=== PATIENT | female | born 1955 | race Caucasian/White ===

== ENCOUNTER 2018-08-26 20:33 | Inpatient (IN) ==
[2018-08-26] MEDS ORDERED: Sodium Chlor 0.9% Inj 500 ML IV.SIG ONE (20:42)
--- NOTE | 2018-08-26 20:48 | ED ---
HPI General Chief Complaint: Fall Stated Complaint: fall Time Seen by Provider: 08/26/18 20:42 History of Present Illness HPI Narrative: Patient is a 62-year-old female who today was going outside to do her laundry she slipped on the cement her leg left side got trapped underneath her body and she was unable to get up on her own and she was unable to contact anyone to help her paramedics found her around 7:00 this evening over 8 hours after she had been lying on the ground with her leg bent behind her in severe pain. Paramedics had called in route to get orders for morphine to help control her pain as they try to straighten her knee and place it into a temporary splint. On arrival patient is awake alert BP is 166/70 she reports she is still in pain but less so after she received a total of 20 of morphine over 2 mg increments Related Data Home Medications Medication Instructions Recorded Confirmed gabapentin 600 mg PO TID 08/26/18 08/26/18 lisinopril-hydrochlorothiazide 1 tab PO DAILY 08/26/18 08/26/18 Previous Rx's Medication Instructions Recorded enoxaparin [Lovenox] 40 mg SUBCUT DAILY #21 ml 08/30/18 guaifenesin [Mucinex] 600 mg PO BID #10 tab 08/30/18 oxycodone-acetaminophen [Percocet] 1 tab PO Q4H PRN #60 tab 08/30/18 Allergies Allergy/AdvReac Type Severity Reaction Status Date / Time No Known Allergies Allergy Verified 08/26/18 20:42 Review of Systems ROS: all other systems reviewed are negative [facility] Social History Social History Substance History: No History of Abuse Second Hand Smoke Exposure: No Smoking Status: Current every day smoker Tobacco Type: Cigarettes How Often Do You Have a Drink Containing Alcohol: Never Recent Travel in [facility] within the Last 8 Weeks: No Recent Out of Country Travel within the Last 8 Weeks: No Exam Narrative Exam Narrative: GENERAL: SKIN: Warm and dry. HEAD: Atraumatic. Normocephalic. EYES: Pupils equal and round. No scleral icterus. No injection or drainage. ENT: No nasal bleeding or discharge. Mucous membranes pink and moist. NECK: Trachea midline. No JVD. CARDIOVASCULAR: Regular rate and rhythm. RESPIRATORY: No accessory muscle use. Clear to auscultation. Breath sounds equal bilaterally. GASTROINTESTINAL: Abdomen soft, non-tender, nondistended. Hepatic and splenic margins not palpable. MUSCULOSKELETAL: Extremities without clubbing, cyanosis, or edema. No obvious deformities. NEUROLOGICAL: Awake and alert. No obvious cranial nerve deficits. Motor grossly within normal limits. Five out of 5 muscle strength in the arms and legs. Normal speech. PSYCHIATRIC: Appropriate mood and affect; insight and judgment normal. Course Initial Documented Vital Signs Pulse Rate 92 H 08/26/18 20:40 Blood Pressure 166/83 H 08/26/18 20:40 Pulse Oximetry 99 08/26/18 20:40 Last Documented Vital Signs Temperature 98.6 F 08/30/18 16:25 Pulse Rate 77 08/30/18 16:25 Respiratory Rate 16 08/30/18 16:25 Blood Pressure 144/81 H 08/30/18 16:25 Pulse Oximetry 98 08/30/18 16:25 Medical Decision Making Lab Data Result diagrams: 08/30/18 07:35 08/29/18 05:34 Lab Results 08/26/18 08/26/18 08/26/18 Range/Units 20:45 20:45 21:15 WBC 18.2 H (4.0-11.0) th/mm3 RBC 3.33 L (4.00-5.30) mil/mm3 Hgb 9.7 L (11.6-15.3) gm/dL Hct 28.6 L (35.0-46.0) % MCV 85.7 (80.0-100.0) fL MCH 29.0 (27.0-34.0) pg MCHC 33.9 (32.0-36.0) % RDW 14.3 (11.6-17.2) % Plt Count 447 (150-450) th/mm3 MPV 6.0 L (7.0-11.0) fL Prelim Diff (Auto) Neut % (Auto) 91.5 H (16.0-70.0) % Lymph % (Auto) 4.0 L (9.0-44.0) % [place] % (Auto) 4.3 (0.0-8.0) % Eos % (Auto) 0.0 (0.0-4.0) % Baso % (Auto) 0.2 (0.0-2.0) % Neut # (Auto) 16.6 H (1.8-7.7) th/mm3 Lymph # (Auto) 0.7 L (1.0-4.8) th/mm3 [place] # (Auto) 0.8 (0.0-0.9) th/mm3 Eos # (Auto) 0.0 (0.0-0.4) th/mm3 Baso # (Auto) 0.0 (0.0-0.2) th/mm3 WBC Differential . Diff Scan Differential Comment Auto diff final Platelet Estimate (Normal) Platelet Morphology (Normal) PT 10.1 (9.8-11.6) sec INR 1.0 Ratio Sodium 134 L (136-145) meq/L Potassium 3.9 (3.5-5.1) meq/L Chloride 99 (98-107) meq/L Carbon Dioxide 23.8 (21.0-32.0) meq/L Anion Gap 11 (5-15) meq/L BUN 35 H (7-18) mg/dL Creatinine 1.09 H (0.50-1.00) mg/dL Estimated GFR 51 L (>89) mL/min POC Glucose (68-110) mg/dl Random Glucose 110 H (74-106) mg/dL Calcium 8.1 L (8.5-10.1) mg/dL Calcium Adj for Albumin (8.5-10.1) mg/dL Total Bilirubin 0.3 (0.2-1.0) mg/dL AST 42 H (15-37) U/L ALT 28 (10-53) U/L Alkaline Phosphatase 111 (45-117) U/L Total Creatine Kinase 804 H (26-192) U/L CK-MB (CK-2) 23.0 H (0.5-3.6) ng/mL CK-MB (CK-2) % 2.9 (0.0-4.0) % Troponin I Less than 0.02 L (0.02-0.05) ng/mL Total Protein 6.8 (6.4-8.2) g/dL Albumin 3.1 L (3.4-5.0) g/dL Serum Alcohol Less than 3 (0-5) mg/dL Blood Type Blood Type Recheck Antibody Screen MTS Gel Crossmatch 08/26/18 08/27/18 08/27/18 Range/Units 21:15 01:10 22:28 WBC (4.0-11.0) th/mm3 RBC (4.00-5.30) mil/mm3 Hgb (11.6-15.3) gm/dL Hct (35.0-46.0) % MCV (80.0-100.0) fL MCH (27.0-34.0) pg MCHC (32.0-36.0) % RDW (11.6-17.2) % Plt Count (150-450) th/mm3 MPV (7.0-11.0) fL Prelim Diff (Auto) Neut % (Auto) (16.0-70.0) % Lymph % (Auto) (9.0-44.0) % [place] % (Auto) (0.0-8.0) % Eos % (Auto) (0.0-4.0) % Baso % (Auto) (0.0-2.0) % Neut # (Auto) (1.8-7.7) th/mm3 Lymph # (Auto) (1.0-4.8) th/mm3 [place] # (Auto) (0.0-0.9) th/mm3 Eos # (Auto) (0.0-0.4) th/mm3 Baso # (Auto) (0.0-0.2) th/mm3 WBC Differential Diff Scan Differential Comment Platelet Estimate (Normal) Platelet Morphology (Normal) PT (9.8-11.6) sec INR Ratio Sodium (136-145) meq/L Potassium (3.5-5.1) meq/L Chloride (98-107) meq/L Carbon Dioxide (21.0-32.0) meq/L Anion Gap (5-15) meq/L BUN (7-18) mg/dL Creatinine (0.50-1.00) mg/dL Estimated GFR (>89) mL/min POC Glucose 135 H (68-110) mg/dl Random Glucose (74-106) mg/dL Calcium (8.5-10.1) mg/dL Calcium Adj for Albumin (8.5-10.1) mg/dL Total Bilirubin (0.2-1.0) mg/dL AST (15-37) U/L ALT (10-53) U/L Alkaline Phosphatase (45-117) U/L Total Creatine Kinase 827 H (26-192) U/L CK-MB (CK-2) 24.1 H (0.5-3.6) ng/mL CK-MB (CK-2) % 2.9 (0.0-4.0) % Troponin I (0.02-0.05) ng/mL Total Protein (6.4-8.2) g/dL Albumin (3.4-5.0) g/dL Serum Alcohol (0-5) mg/dL Blood Type O Positive Blood Type Recheck Required Antibody Screen Negative MTS Gel Crossmatch 08/27/18 08/28/18 08/28/18 Range/Units 22:50 00:15 06:08 WBC 14.4 H (4.0-11.0) th/mm3 RBC 2.33 L (4.00-5.30) mil/mm3 Hgb 6.9 L* D (11.6-15.3) gm/dL Hct 20.3 L* (35.0-46.0) % MCV 87.3 (80.0-100.0) fL MCH 29.4 (27.0-34.0) pg MCHC 33.7 (32.0-36.0) % RDW 14.2 (11.6-17.2) % Plt Count 303 D (150-450) th/mm3 MPV 6.2 L (7.0-11.0) fL Prelim Diff (Auto) Slide review pending Neut % (Auto) 84.1 H (16.0-70.0) % Lymph % (Auto) 8.0 L (9.0-44.0) % [place] % (Auto) 7.3 (0.0-8.0) % Eos % (Auto) 0.1 (0.0-4.0) % Baso % (Auto) 0.5 (0.0-2.0) % Neut # (Auto) 12.1 H (1.8-7.7) th/mm3 Lymph # (Auto) 1.2 (1.0-4.8) th/mm3 [place] # (Auto) 1.0 H (0.0-0.9) th/mm3 Eos # (Auto) 0.0 (0.0-0.4) th/mm3 Baso # (Auto) 0.1 (0.0-0.2) th/mm3 WBC Differential . Diff Scan Auto diff confirmed Differential Comment . Platelet Estimate Normal (Normal) Platelet Morphology Normal (Normal) PT (9.8-11.6) sec INR Ratio Sodium 138 (136-145) meq/L Potassium 4.1 (3.5-5.1) meq/L Chloride 106 (98-107) meq/L Carbon Dioxide 24.7 (21.0-32.0) meq/L Anion Gap 7 (5-15) meq/L BUN 15 (7-18) mg/dL Creatinine 0.66 (0.50-1.00) mg/dL Estimated GFR Greater than 89 (>89) mL/min POC Glucose (68-110) mg/dl Random Glucose 100 (74-106) mg/dL Calcium 7.2 L* D (8.5-10.1) mg/dL Calcium Adj for Albumin 8.8 (8.5-10.1) mg/dL Total Bilirubin (0.2-1.0) mg/dL AST (15-37) U/L ALT (10-53) U/L Alkaline Phosphatase (45-117) U/L Total Creatine Kinase (26-192) U/L CK-MB (CK-2) (0.5-3.6) ng/mL CK-MB (CK-2) % (0.0-4.0) % Troponin I (0.02-0.05) ng/mL Total Protein (6.4-8.2) g/dL Albumin 2.0 L D (3.4-5.0) g/dL Serum Alcohol (0-5) mg/dL Blood Type Blood Type Recheck Antibody Screen MTS Gel Crossmatch See Detail 08/28/18 08/29/18 08/29/18 Range/Units 06:08 05:34 05:34 WBC 10.8 (4.0-11.0) th/mm3 RBC 2.47 L (4.00-5.30) mil/mm3 Hgb 8.1 L 7.4 L (11.6-15.3) gm/dL Hct 23.4 L 22.0 L (35.0-46.0) % MCV 89.2 (80.0-100.0) fL MCH 30.0 (27.0-34.0) pg MCHC 33.6 (32.0-36.0) % RDW 14.2 (11.6-17.2) % Plt Count 294 (150-450) th/mm3 MPV 6.3 L (7.0-11.0) fL Prelim Diff (Auto) Neut % (Auto) 78.6 H (16.0-70.0) % Lymph % (Auto) 9.7 (9.0-44.0) % [place] % (Auto) 10.1 H (0.0-8.0) % Eos % (Auto) 0.9 (0.0-4.0) % Baso % (Auto) 0.7 (0.0-2.0) % Neut # (Auto) 8.5 H (1.8-7.7) th/mm3 Lymph # (Auto) 1.1 (1.0-4.8) th/mm3 [place] # (Auto) 1.1 H (0.0-0.9) th/mm3 Eos # (Auto) 0.1 (0.0-0.4) th/mm3 Baso # (Auto) 0.1 (0.0-0.2) th/mm3 WBC Differential . Diff Scan Differential Comment Auto diff final Platelet Estimate (Normal) Platelet Morphology (Normal) PT (9.8-11.6) sec INR Ratio Sodium 135 L (136-145) meq/L Potassium 3.8 (3.5-5.1) meq/L Chloride 103 (98-107) meq/L Carbon Dioxide 25.3 (21.0-32.0) meq/L Anion Gap 7 (5-15) meq/L BUN 12 (7-18) mg/dL Creatinine 0.55 (0.50-1.00) mg/dL Estimated GFR Greater than 89 (>89) mL/min POC Glucose (68-110) mg/dl Random Glucose 105 (74-106) mg/dL Calcium 7.5 L (8.5-10.1) mg/dL Calcium Adj for Albumin (8.5-10.1) mg/dL Total Bilirubin (0.2-1.0) mg/dL AST (15-37) U/L ALT (10-53) U/L Alkaline Phosphatase (45-117) U/L Total Creatine Kinase (26-192) U/L CK-MB (CK-2) (0.5-3.6) ng/mL CK-MB (CK-2) % (0.0-4.0) % Troponin I (0.02-0.05) ng/mL Total Protein (6.4-8.2) g/dL Albumin (3.4-5.0) g/dL Serum Alcohol (0-5) mg/dL Blood Type Blood Type Recheck Antibody Screen MTS Gel Crossmatch 08/29/18 08/30/18 Range/Units 09:06 07:35 WBC 8.7 (4.0-11.0) th/mm3 RBC 3.45 L (4.00-5.30) mil/mm3 Hgb 10.3 L D (11.6-15.3) gm/dL Hct 30.7 L (35.0-46.0) % MCV 89.0 (80.0-100.0) fL MCH 29.9 (27.0-34.0) pg MCHC 33.6 (32.0-36.0) % RDW 14.6 (11.6-17.2) % Plt Count 332 (150-450) th/mm3 MPV 6.4 L (7.0-11.0) fL Prelim Diff (Auto) Neut % (Auto) 79.1 H (16.0-70.0) % Lymph % (Auto) 11.0 (9.0-44.0) % [place] % (Auto) 7.8 (0.0-8.0) % Eos % (Auto) 1.4 (0.0-4.0) % Baso % (Auto) 0.7 (0.0-2.0) % Neut # (Auto) 6.8 (1.8-7.7) th/mm3 Lymph # (Auto) 1.0 (1.0-4.8) th/mm3 [place] # (Auto) 0.7 (0.0-0.9) th/mm3 Eos # (Auto) 0.1 (0.0-0.4) th/mm3 Baso # (Auto) 0.1 (0.0-0.2) th/mm3 WBC Differential . Diff Scan Differential Comment Auto diff final Platelet Estimate (Normal) Platelet Morphology (Normal) PT (9.8-11.6) sec INR Ratio Sodium (136-145) meq/L Potassium (3.5-5.1) meq/L Chloride (98-107) meq/L Carbon Dioxide (21.0-32.0) meq/L Anion Gap (5-15) meq/L BUN (7-18) mg/dL Creatinine (0.50-1.00) mg/dL Estimated GFR (>89) mL/min POC Glucose (68-110) mg/dl Random Glucose (74-106) mg/dL Calcium (8.5-10.1) mg/dL Calcium Adj for Albumin (8.5-10.1) mg/dL Total Bilirubin (0.2-1.0) mg/dL AST (15-37) U/L ALT (10-53) U/L Alkaline Phosphatase (45-117) U/L Total Creatine Kinase (26-192) U/L CK-MB (CK-2) (0.5-3.6) ng/mL CK-MB (CK-2) % (0.0-4.0) % Troponin I (0.02-0.05) ng/mL Total Protein (6.4-8.2) g/dL Albumin (3.4-5.0) g/dL Serum Alcohol (0-5) mg/dL Blood Type Blood Type Recheck Antibody Screen MTS Gel Crossmatch See Detail Imaging Data Radiologist's impression: Femur X-Ray 08/26/18 20:43 CONCLUSION: 1. Proximal left femur fracture, as above. Pelvis X-Ray 08/26/18 20:43 CONCLUSION: 1. No acute fracture. Femur X-Ray 08/27/18 00:00 CONCLUSION: Satisfactory appearance of the left femur status post ORIF of a shaft fracture as described. Chest X-Ray 08/28/18 00:00 CONCLUSION: No evidence of acute cardiopulmonary process. Discharge Plan Discharge Disposition Patient Disposition: ED Admit(ED Internal Use Only) Discharge Condition Condition: Stable Discharge Order Discharge Orders: Discharge Order (Routine); Ordered 08/30/18 Ordered By: Aura Murillo ED Use Only Admit Order (Routine); Ordered 08/26/18 Ordered By: David Valerio Discharge Details Anticipated Discharge Date: 08/30/18 Discharge Comment: Followup with Dr. Eubanks in 2 weeks Followup with PCP, Dr. Richard Velazco, 1 week after discharge from rehab Physicians Team ED Provider: David Valerio Primary Care Provider: Richard Velazco Attending Provider: Nathan Chowdary Other Providers: Fabby Eubanks ; Kaylee Ocampo,Hagerman Status ED Status: Left Department Discharge Information Discharge Date/Time: 08/27/18 02:14
--- NOTE | 2018-08-26 21:26 | XR ---
EXAM DATE: 08/26/2018 9:20 PM EST AGE/SEX: 62 years / Female INDICATIONS: Trauma, patient fell down stairs. CLINICAL DATA: This is the patient's initial encounter. Patient reports that signs and symptoms have been present for 1 day and indicates a pain score of 10/10. MEDICAL/SURGICAL HISTORY: None. None. COMPARISON: [facility] [place], PELVIS AP 1V, 08/26/2018. . FINDINGS: Oblique fracture of the proximal left femoral diaphysis with significant overriding fragments and ful l shaft length medial and anterior displacement of the distal fragment. Soft tissue prominence about the thigh. No radiopaque foreign bodies. CONCLUSION: 1. Proximal left femur fracture, as above. Electronically signed by: Gerson Garcia MD Board Certified Radiologist 08/26/2018 9:25 PM KALEB T
--- NOTE | 2018-08-26 21:27 | XR ---
EXAM DATE: 08/26/2018 9:19 PM EST AGE/SEX: 62 years / Female INDICATIONS: Trauma, patient fell down stairs. CLINICAL DATA: This is the patient's initial encounter. Patient reports that signs and symptoms have been present for 1 day and indicates a pain score of 10/10. MEDICAL/SURGICAL HISTORY: None. None. COMPARISON: No prior exams available for comparison. FINDINGS: Examination of the pelvis demonstrates no evidence of fracture or dislocation. Bony mineralization i s normal. There is no widening of the sacroiliac joints. No foreign body is identified. CONCLUSION: 1. No acute fracture. Electronically signed by: Gerson Garcia MD Board Certified Radiologist 08/26/2018 9:25 PM KALEB T
[2018-08-26 21:50] LABS: Baso % (Auto) 0.2 % (0.0-2.0); Hematocrit 28.6 % (35.0-46.0); Hemoglobin 9.7 gm/dL (11.6-15.3); Lymph # (Auto) 0.7 th/mm3 (1.0-4.8); Mean Corpuscular HGB Conc 33.9 % (32.0-36.0); Mean Corpuscular Volume 85.7 fL (80.0-100.0); Mono # (Auto) 0.8 th/mm3 (0.0-0.9); Mono % (Auto) 4.3 % (0.0-8.0); Neut # (Auto) 16.6 th/mm3 (1.8-7.7); Neut % (Auto) 91.5 % (16.0-70.0); Platelet Count 447 th/mm3 (150-450); Red Blood Count 3.33 mil/mm3 (4.00-5.30); Red Cell Distribution Width 14.3 % (11.6-17.2); White Blood Count 18.2 th/mm3 (4.0-11.0)
[2018-08-26 21:57] LABS: Prothrombin Time 10.1 sec (9.8-11.6)
[2018-08-26] MEDS ORDERED: HYDROmorphone PF Inj 2 MG/ML Vial IV.PUSH ONE (21:58)
[2018-08-26 22:28] LABS: Alanine Aminotransferase 28 U/L (10-53); Albumin 3.1 g/dL (3.4-5.0); Anion Gap 11 meq/L (5-15); Aspartate Aminotransferase 42 U/L (15-37); Blood Urea Nitrogen 35 mg/dL (7-18); Calcium 8.1 mg/dL (8.5-10.1); Carbon Dioxide 23.8 meq/L (21.0-32.0); Chloride 99 meq/L (98-107); Glomerular Filtration Rate 51 mL/min (>89); Glucose,Random 110 mg/dL (74-106); Potassium 3.9 meq/L (3.5-5.1); Sodium 134 meq/L (136-145)
[2018-08-26 22:32] LABS: Alkaline Phosphatase 111 U/L (45-117); Creatine Kinase 804 U/L (26-192); Total Protein 6.8 g/dL (6.4-8.2)
[2018-08-26 22:44] LABS: CKMB Percent 2.9 % (0.0-4.0)
[2018-08-26] MEDS ORDERED: Bisacodyl 10 MG Supp RECTAL PRN (22:52)
--- NOTE | 2018-08-26 23:00 | P.HP ---
History of Present Illness Service: [facility] Primary Care Physician: Richard Velazco MD Chief Complaint: Fall at home History of Present Illness: 62-year-old female who today was going outside to do her laundry she slipped on the cement her left leg got try underneath her body and one is a and was unable to get up on her own. She was unable to contact anyone to help her, paramedics found her approximately 7 PM over 8 hours from the incident patient with severe pain requiring several doses of morphine and eventual Dilaudid x-rays confirm a left large femur fracture orthopedics is aware will be admitted now for surgery in the morning patient has a past medical history of neuropathy chronic knee pain she is on gabapentin and [place] also hypertension on lisinopril 20 mg with HCTZ 12 past medical history includes chronic headaches hypertension . - Diagnosis (1) Femur fracture, left (2) Hypertension (3) Leukocytosis Inpatient Certification: I certify that the inpatient services were ordered in accordance with Medicare regulations governing the order. This includes certification that hospital inpatient services are reasonable and necessary and in the case of services not specified as inpatient-only under 42 CFR 419.22(n), that they are appropriately provided as inpatient services in accordance to with the 2-midnight benchmark under 43 CFR 412.3(e) Estimated Total Length of Stay (Days): 3 Plans for Post Hospital Care: SNF Review of Systems All other systems reviewed negative except as stated in HPI PMFSH - History History Provided By: Patient, Security Incident Handler / EMT - Medical History Medical History: Medical History (Last Reviewed 08/26/18 @ 22:57 by Gui Montiel MD) Arthritis Chronic headaches HTN (hypertension) - Tobacco History Tobacco Use In Past 30 Days: Yes Smoking Status: Current every day smoker Tobacco Type: Cigarettes - Alcohol History How Often Do You Have a Drink Containing Alcohol: Never - Substance Use History Substance History: No History of Abuse - Travel History Recent Travel in the [place] Within the Last 8 Weeks: No Recent Travel Out of the Country Within the Last 8 Weeks: No - Immunization History Tetanus Immunization: >5 Years Medications and Allergies Active Medications: Active Medications Acetaminophen (Tylenol) 650 mg PO Q4H PRN PRN Reason: Temp > 100.4 Bisacodyl (Dulcolax Supp) 10 mg RECTAL DAILY PRN PRN Reason: SEVERE CONSITIPATION Gabapentin (Neurontin) 600 mg PO TID ARTURO Hydrochlorothiazide (Microzide) 12.5 mg PO DAILY ARTURO Hydromorphone HCl (Dilaudid Pf Inj) 1 mg IV.PUSH Q4H PRN PRN Reason: PAIN 6-10 Sodium Chloride (1/2 Normal Saline Inj) 1,000 mls @ 75 mls/hr IV.CONT .[id number] ARTURO Lisinopril (Prinivil) 20 mg PO DAILY ARTURO Ondansetron HCl (Zofran Inj) 4 mg IV.PUSH Q6H PRN PRN Reason: NAUSEA OR VOMITING Sodium Chloride (Ns Flush) 2 ml IV.FLUSH BID ARTURO Sodium Chloride (Ns Flush) 2 ml IV.FLUSH PRN PRN PRN Reason: FLUSH AFTER USING IV ACCESS Allergies Allergy/AdvReac Type Severity Reaction Status Date / Time No Known Allergies Allergy Verified 08/26/18 20:42 Exam Vital signs: Vital Signs 08/26/18 20:40 08/26/18 20:47 Pulse Rate 92 H 87 Blood Pressure 166/83 H 147/70 H Pulse Oximetry 99 99 Intake & Output 08/26/18 08/26/18 08/27/18 06:59 18:59 06:59 Intake Total 500 / 500 Balance 500 / 500 Weight 62.596 kg Intake: IV 500 / 500 NS Inj 500 ML @ Wide Open IV. 500 / 500 SIG BOLUS ONE Rx#:[id number] Narrative: GENERAL: SKIN: Warm and dry. HEAD: Normocephalic. EYES: No scleral icterus. No injection or drainage. NECK: Supple, trachea midline. No JVD or lymphadenopathy. CARDIOVASCULAR: Regular rate and rhythm without murmurs, gallops, or rubs. RESPIRATORY: Breath sounds equal bilaterally. No accessory muscle use. GASTROINTESTINAL: Abdomen soft, non-tender, nondistended. MUSCULOSKELETAL: left leg in traction as per orthopedics BACK: Nontender without obvious deformity. No CVA tenderness. Results - Labs CBC & Chem 7: 08/26/18 20:45 08/26/18 20:45 Labs: Laboratory Results - last 24 hr 08/26/18 08/26/18 08/26/18 20:45 20:45 21:15 WBC 18.2 H RBC 3.33 L Hgb 9.7 L Hct 28.6 L MCV 85.7 MCH 29.0 MCHC 33.9 RDW 14.3 Plt Count 447 MPV 6.0 L Neut % (Auto) 91.5 H Lymph % (Auto) 4.0 L [place] % (Auto) 4.3 Eos % (Auto) 0.0 Baso % (Auto) 0.2 Neut # (Auto) 16.6 H Lymph # (Auto) 0.7 L [place] # (Auto) 0.8 Eos # (Auto) 0.0 Baso # (Auto) 0.0 WBC Differential . Differential Comment Auto diff final PT 10.1 INR 1.0 Sodium 134 L Potassium 3.9 Chloride 99 Carbon Dioxide 23.8 Anion Gap 11 BUN 35 H Creatinine 1.09 H Estimated GFR 51 L Random Glucose 110 H Calcium 8.1 L Total Bilirubin 0.3 AST 42 H ALT 28 Alkaline Phosphatase 111 Total Creatine Kinase 804 H CK-MB (CK-2) 23.0 H CK-MB (CK-2) % 2.9 Troponin I Less than 0.02 L Total Protein 6.8 Albumin 3.1 L Serum Alcohol Less than 3 Blood Type Blood Type Recheck Antibody Screen 08/26/18 21:15 WBC RBC Hgb Hct MCV MCH MCHC RDW Plt Count MPV Neut % (Auto) Lymph % (Auto) [place] % (Auto) Eos % (Auto) Baso % (Auto) Neut # (Auto) Lymph # (Auto) [place] # (Auto) Eos # (Auto) Baso # (Auto) WBC Differential Differential Comment PT INR Sodium Potassium Chloride Carbon Dioxide Anion Gap BUN Creatinine Estimated GFR Random Glucose Calcium Total Bilirubin AST ALT Alkaline Phosphatase Total Creatine Kinase CK-MB (CK-2) CK-MB (CK-2) % Troponin I Total Protein Albumin Serum Alcohol Blood Type O Positive Blood Type Recheck Required Antibody Screen Negative - Imaging Impressions Femur X-Ray 08/26/18 20:43 CONCLUSION: 1. Proximal left femur fracture, as above. Pelvis X-Ray 08/26/18 20:43 CONCLUSION: 1. No acute fracture. Caprini VTE Risk Assessment Caprini VTE Risk Assessment: Moderate/High Risk (score >= 2) Caprini Risk Assessment Model: Point Value = 1 Point Value = 2 Point Value = 3 Point Value = 5 Age 41-60 Minor surgery BMI > 25 kg/m2 Swollen legs Varicose veins or History of unexplained or recurrent spontaneous Oral contraceptives or hormone replacement Sepsis (< 1 month) Serious lung disease, including pneumonia (< 1 month) Abnormal pulmonary function Acute myocardial infarction Congestive heart failure (< 1 month) History of inflammatory bowel disease Medical patient at bed rest Age 61-74 Arthroscopic surgery Major open surgery (> 45 min) Laparoscopic surgery (> 45 min) Malignancy Confined to bed (> 72 hours) Immobilizing plaster cast Central venous access Age >= 75 History of VTE Family history of VTE Factor V Leiden Prothrombin [id number] Lupus anticoagulant Anticardiolipin antibodies Elevated serum homocysteine Heparin-induced thrombocytopenia Other congenital or acquired thrombophilia Stroke (< 1 month) Elective arthroplasty Hip, pelvis, or leg fracture Acute spinal cord injury (< 1 month) Prophylaxis Regimen: Total Risk Factor Score Risk Level Prophylaxis Regimen 0-1 Low Early ambulation 2 Moderate Order ONE of the following: *Sequential Compression Device (SCD) *Heparin 5000 units SQ BID 3-4 Higher Order ONE of the following medications: *Heparin 5000 units SQ TID *Enoxaparin/Lovenox 40 mg SQ daily (WT < 150 kg, CrCl > 30 mL/min) *Enoxaparin/Lovenox 30 mg SQ daily (WT < 150 kg, CrCl > 10-29 mL/min) *Enoxaparin/Lovenox 30 mg SQ BID (WT < 150 kg, CrCl > 30 mL/min) AND/OR *Sequential Compression Device (SCD) 5 or more Highest Order ONE of the following medications: *Heparin 5000 units SQ TID (Preferred with Epidurals) *Enoxaparin/Lovenox 40 mg SQ daily (WT < 150 kg, CrCl > 30 mL/min) *Enoxaparin/Lovenox 30 mg SQ daily (WT < 150 kg, CrCl > 10-29 mL/min) *Enoxaparin/Lovenox 30 mg SQ BID (WT < 150 kg, CrCl > 30 mL/min) AND *Sequential Compression Device (SCD) Assessment and Plan - Assessment (1) Femur fracture, left Code(s): S72.92XA - Unspecified fracture of left femur, initial encounter for closed fracture Status: Acute Plan: Pain control orthopedic consult trouble with surgery (2) Hypertension Code(s): I10 - Essential (primary) hypertension Status: Acute Plan: Continue home medication (3) Leukocytosis Code(s): D72.829 - Elevated white blood cell count, unspecified Status: Acute Plan: We will recheck WBC count in a.m. does have a slightly low hemoglobin as well will be rechecked may be a reserve as a result of her being on the floor for over 8 hours - Plan Further plan as case develops Code Status: Full Discussed Condition With: Patient and family
[2018-08-27] MEDS ORDERED: Sod Chloride 0.9% Inj 1,000 ML IV.SIG ONE ×3 (01:10→23:30)
[2018-08-27] MEDS: Sodium Chloride 0.45 % Inj 1,000 ML IV.CONT SCH ×2 (01:15→17:50)
[2018-08-27] MEDS: HYDROmorphone PF Inj 1 MG/ML Ampul IV.PUSH PRN ×3 (02:29→09:54)
[2018-08-27 02:56] LABS: CKMB Percent 2.9 % (0.0-4.0); Creatine Kinase MB 24.1 ng/mL (0.5-3.6)
[2018-08-27] MEDS ORDERED: Chlorhexidine Gluconate 2% 1 Pack (2 Cloths) TOPICAL ONE (04:05)
[2018-08-27] MEDS ORDERED: Sodium Chlor 0.9% Inj 500 ML IV.SIG SCH (05:00)
[2018-08-27] MEDS: Gabapentin 300 MG Capsule PO SCH ×3 (09:50→17:42)
[2018-08-27] MEDS: Lisinopril 20 MG Tablet PO SCH (09:51)
--- NOTE | 2018-08-27 10:00 | P.CONOP ---
[facility] Orthopedics Consult Note - [facility] Consult date: 08/27/18 Requesting physician: David Valerio Consult reason: fracture Chief complaint: femur fracture Narrative: 62 year old female missed a step yesterday and fell at home. She was unable to bear weight on the left leg and was down for approximately 8 hours before she was found and brought to the emergency room. Imaging revealed a femoral shaft fracture. She is complaining of pain to the left thigh this morning. She denies pain elsewhere. She denies numbness or tingling. Review of Systems All other systems reviewed negative except as stated in [facility] - History History Provided By: Patient - Medical History Medical History: Medical History (Last Reviewed 08/27/18 @ 09:56 by Fabby Eubanks MD) Arthritis Chronic headaches HTN (hypertension) - Social History I have reviewed the patient's Social History: Yes - Tobacco History Second Hand Smoke Exposure: No Tobacco Use In Past 30 Days: Yes Smoking Status: Current every day smoker Tobacco Type: Cigarettes - Alcohol History How Often Do You Have a Drink Containing Alcohol: Never - Substance Use History Substance History: No History of Abuse - Travel History Recent Travel in the [facility] Within the Last 8 Weeks: No Recent Travel Out of the Country Within the Last 8 Weeks: No - Immunization History Tetanus Immunization: Unsure Hx Influenza Vaccine This Season: No Medications and Allergies Active Medications: Active Medications Acetaminophen (Tylenol) 650 mg PO Q4H PRN PRN Reason: Temp > 100.4 Bisacodyl (Dulcolax Supp) 10 mg RECTAL DAILY PRN PRN Reason: SEVERE CONSITIPATION Gabapentin (Neurontin) 600 mg PO TID [facility] Hydrochlorothiazide (Microzide) 12.5 mg PO DAILY [facility] Hydromorphone HCl (Dilaudid Pf Inj) 1 mg IV.PUSH Q4H PRN PRN Reason: PAIN 6-10 Last Admin: 08/27/18 06:28 Dose: 1 mg Sodium Chloride (1/2 Normal Saline Inj) 1,000 mls @ 75 mls/hr IV.CONT .[id number] [facility] Last Admin: 08/27/18 01:15 Dose: 75 mls/hr Lactated Ringer's (Lr 1000 Ml Inj) 1,000 mls @ 30 mls/hr IV.SIG .Q24H [facility] Stop: 08/28/18 04:14 Sodium Chloride (Ns Inj) 500 mls @ 30 mls/hr IV.SIG .Q10H [facility] Lisinopril (Prinivil) 20 mg PO DAILY [facility] Ondansetron HCl (Zofran Inj) 4 mg IV.PUSH Q6H PRN PRN Reason: NAUSEA OR VOMITING Last Admin: 08/27/18 02:30 Dose: 4 mg Sodium Chloride (Ns Flush) 2 ml IV.FLUSH BID [facility] Sodium Chloride (Ns Flush) 2 ml IV.FLUSH PRN PRN PRN Reason: FLUSH AFTER USING IV ACCESS Allergies Allergy/AdvReac Type Severity Reaction Status Date / Time No Known Allergies Allergy Verified 08/26/18 20:42 Home Medications Medication Instructions Recorded Confirmed Type gabapentin 600 mg PO TID 08/26/18 08/26/18 History hydrocodone-acetaminophen [[place]] 1 tab PO DAILY 08/26/18 08/26/18 History lisinopril-hydrochlorothiazide 1 tab PO DAILY 08/26/18 08/26/18 History Exam Vital signs: Vital Signs 08/26/18 20:40 08/26/18 20:47 08/26/18 23:26 Temperature Pulse Rate 92 H 87 Respiratory Rate 14 Blood Pressure 166/83 H 147/70 H Pulse Oximetry 99 99 08/27/18 00:52 08/27/18 02:14 08/27/18 03:29 Temperature 98.1 F Pulse Rate 90 90 Respiratory Rate 16 19 Blood Pressure 152/72 H 167/77 H Pulse Oximetry 94 L 95 08/27/18 07:30 Temperature 98.6 F Pulse Rate 80 Respiratory Rate 17 Blood Pressure 141/65 H Pulse Oximetry 96 Intake & Output 08/26/18 08/27/18 08/27/18 18:59 06:59 18:59 Intake Total 500 / 500 Balance 500 / 500 Weight 68.1 kg Intake: IV 500 / 500 NS Inj 500 ML @ Wide Open IV. 500 / 500 SIG BOLUS ONE Rx#:[id number] Other: # Voids 2 Weight On Admission 67.5 kg - Constitutional no acute distress - Routine HEENT Exam Head: Present: normocephalic Eye: Present: EOMI - Routine Respiratory Exam Absent: accessory muscle use - Routine Cardiovascular Exam Present: RRR - Routine Extremities Exam Comments: LLE in altamirano's traction, 2+DP, wiggles toes, sensation intact to light touch. TTP about thigh, some ecchymosis present RLE without tenderness, no pain with log roll, NVI BUE with full active ROM, no deformities, NVI - Routine Neurological Exam Present: alert, oriented X3 Results - Labs Result Diagrams: 08/26/18 20:45 08/26/18 20:45 Labs: Laboratory Results - last 24 hr 08/26/18 08/26/18 08/26/18 20:45 20:45 21:15 WBC 18.2 H RBC 3.33 L Hgb 9.7 L Hct 28.6 L MCV 85.7 MCH 29.0 MCHC 33.9 RDW 14.3 Plt Count 447 MPV 6.0 L Neut % (Auto) 91.5 H Lymph % (Auto) 4.0 L [place] % (Auto) 4.3 Eos % (Auto) 0.0 Baso % (Auto) 0.2 Neut # (Auto) 16.6 H Lymph # (Auto) 0.7 L [place] # (Auto) 0.8 Eos # (Auto) 0.0 Baso # (Auto) 0.0 WBC Differential . Differential Comment Auto diff final PT 10.1 INR 1.0 Sodium 134 L Potassium 3.9 Chloride 99 Carbon Dioxide 23.8 Anion Gap 11 BUN 35 H Creatinine 1.09 H Estimated GFR 51 L Random Glucose 110 H Calcium 8.1 L Total Bilirubin 0.3 AST 42 H ALT 28 Alkaline Phosphatase 111 Total Creatine Kinase 804 H CK-MB (CK-2) 23.0 H CK-MB (CK-2) % 2.9 Troponin I Less than 0.02 L Total Protein 6.8 Albumin 3.1 L Serum Alcohol Less than 3 Blood Type Blood Type Recheck Antibody Screen 08/26/18 08/27/18 21:15 01:10 WBC RBC Hgb Hct MCV MCH MCHC RDW Plt Count MPV Neut % (Auto) Lymph % (Auto) [place] % (Auto) Eos % (Auto) Baso % (Auto) Neut # (Auto) Lymph # (Auto) [place] # (Auto) Eos # (Auto) Baso # (Auto) WBC Differential Differential Comment PT INR Sodium Potassium Chloride Carbon Dioxide Anion Gap BUN Creatinine Estimated GFR Random Glucose Calcium Total Bilirubin AST ALT Alkaline Phosphatase Total Creatine Kinase 827 H CK-MB (CK-2) 24.1 H CK-MB (CK-2) % 2.9 Troponin I Total Protein Albumin Serum Alcohol Blood Type O Positive Blood Type Recheck Required Antibody Screen Negative - Diagnostic results Imaging: Impressions Femur X-Ray 08/26/18 20:43 CONCLUSION: 1. Proximal left femur fracture, as above. Pelvis X-Ray 08/26/18 20:43 CONCLUSION: 1. No acute fracture. Assessment and Plan - Assessment and Plan 62 year old female who fell and sustained a left femoral shaft fracture. Plan: Recommend surgical fixation with intramedullary nail. Risks, benefits and alternatives discussed. Risks include but are not limited to infection, bleeding , damage to neurovascular structures, malunion, nonunion, persistent pain, potential need for further surgical procedures. Patient verbalized understanding and agrees to proceed. Keep NPO for surgery today.
[2018-08-27] MEDS ORDERED: ceFAZolin 2 GM Premix Inj 2 GM/50 ML PIGGYBACK IV.SIG SCH (10:02)
--- NOTE | 2018-08-27 11:30 | ECG ---
Date Performed: 08/27/2018 Time Performed: 05:32:52 PTAGE: 62 years EKG: Sinus rhythm with PAC(s) Borderline ECG NO PREVIOUS TRACING DOCTOR: Danny Garcia Interpretating Date/Time 08/27/2018 11:29:06
--- NOTE | 2018-08-27 15:08 | P.BOP ---
Date of procedure: 08/27/18 Procedure: open reduction internal fixation left femur fracture Implants: Synthes [id number] [id number] 130 degree nail Anesthesia: GETA Surgeon: Fabby Eubanks MD Forensic Computer Examiner: Karma Holman Estimated blood loss (mL): 200 Pathology: none sent Condition: stable Disposition: PACU
[2018-08-27] MEDS ORDERED: fentaNYL Citrate Inj 100 MCG/2 ML Ampul ONE (15:25)
[2018-08-27] MEDS ORDERED: Morphine Inj 4 MG/ML Vial ONE (15:26)
[2018-08-27] MEDS ORDERED: *morphine SULFATE 10 MG/ML PERIprocedure ONLY ONE (16:13)
--- NOTE | 2018-08-27 16:27 | XR ---
EXAM DATE: 08/27/2018 3:22 PM EST AGE/SEX: 62 years / Female INDICATIONS: Left femoral binh. CLINICAL DATA: This is the patient's initial encounter. Patient reports that signs and symptoms have been present for 1 day and indicates a pain score of Nonresponsive. MEDICAL/SURGICAL HISTORY: Non-responsive. Non-responsive. [place] [facility] [place]. . FINDINGS: A trochanteric nail with a long intramedullary binh extending from the hip to the knee has been placed to stabilize a femoral shaft fracture. There is satisfactory apposition of the fracture following re duction and fixation. CONCLUSION: Satisfactory appearance of the left femur status post ORIF of a shaft fracture as described. Electronically signed by: Kraig Reynoso MD Board Certified Radiologist 08/27/2018 4:25 PM EST
--- NOTE | 2018-08-27 16:47 | P.PNIM ---
Subjective Interval history: post op doing well. family present Physical Exam Vital signs: Last Vital Signs Temp 97.5 F L 08/27/18 15:45 Pulse 90 08/27/18 16:18 Resp 24 08/27/18 16:18 BP 100/58 L 08/27/18 16:18 Pulse Ox 97 08/27/18 16:18 Narrative: nad oriented and awake no labored breathing Results Labs CBC & Chem 7: 08/28/18 06:08 08/28/18 06:08 Assessment and Plan Assessment (1) Femur fracture, left: Code(s): S72.92XA - Unspecified fracture of left femur, initial encounter for closed fracture Status: Acute (2) Hypertension: Code(s): I10 - Essential (primary) hypertension Status: Acute (3) Leukocytosis: Code(s): D72.829 - Elevated white blood cell count, unspecified Status: Acute Plan 1. femur fx 2. htn pt post op nail fixation femur fx 08/27 cont prn dilaudid/hydrocodone IS dvt prophylaxis plan for snf cont home meds as tolerated. _ (1) Leukocytosis Qualifiers: Leukocytosis type: (2) Femur fracture, left Qualifiers: Encounter type: Femur location: Fracture alignment: Fracture healing: Fracture morphology: Fracture type: Open fracture type: Salter-Pascal Fracture Type: (3) Hypertension Qualifiers: Hypertension type:
[2018-08-27] MEDS: ceFAZolin 1 GM Premix Inj 1 GM/50 ML PIGGYBACK IV.SIG SCH ×2 (17:42→23:52)
[2018-08-27] MEDS: Acetaminophen 325 MG Tablet PO PRN ×2 (17:43→22:55)
--- NOTE | 2018-08-27 22:31 | P.PNOP ---
Subjective Interval history: POD 0 ORIF left hip fracture Physical Exam Vital signs: Vital Signs 08/26/18 23:26 08/27/18 00:52 08/27/18 02:14 Temperature Pulse Rate 90 Respiratory Rate 14 16 Blood Pressure 152/72 H Pulse Oximetry 94 L 08/27/18 03:29 08/27/18 07:30 08/27/18 15:14 Temperature 98.1 F 98.6 F 97.4 F L Pulse Rate 90 80 86 Respiratory Rate 19 17 14 Blood Pressure 167/77 H 141/65 H 102/52 L Pulse Oximetry 95 96 99 08/27/18 15:15 08/27/18 15:30 08/27/18 15:45 Temperature 97.5 F L Pulse Rate 92 H 91 H 92 H Respiratory Rate 12 15 20 Blood Pressure 111/56 L 102/51 L 103/55 L Pulse Oximetry 97 93 L 98 08/27/18 16:18 08/27/18 16:53 08/27/18 17:51 Temperature 97.8 F Pulse Rate 90 84 Respiratory Rate 24 19 Blood Pressure 100/58 L 87/50 L 90/80 L Pulse Oximetry 97 96 08/27/18 20:36 08/27/18 20:47 08/27/18 20:48 Temperature 98.5 F Pulse Rate 88 Respiratory Rate 20 Blood Pressure 84/49 L 77/45 L 88/52 L Pulse Oximetry 95 Intake & Output 08/27/18 08/27/18 08/28/18 06:59 18:59 06:59 Intake Total 500 / 500 2790 / 2790 Output Total 400 / 400 Balance 500 / 500 2390 / 2390 Weight 68.1 kg Intake: IV 500 / 500 1050 / 1050 1/2 Normal Saline Inj 1,000 ML 1000 / 1000 @ 75 mls/hr IV.CONT .[id number] [facility] Rx#:[id number] NS Inj 500 ML @ Wide Open IV. 500 / 500 SIG BOLUS ONE Rx#:[id number] Ancef 2 GM Premix Inj 2 gm In 50 / 50 50 ml @ 100 mls/hr IV.SIG [facility] [facility] Rx#:[id number] Oral 240 / 240 Anesthesia Amount 1500 / 1500 Output: Estimated Blood Loss 200 / 200 Urine Amount (Catheter) 200 / 200 1 200 / 200 Other: # Voids 2 Weight On Admission 67.5 kg - Urinary Catheter Management 1 Cath placed during this visit: yes Reason for continuing: Hourly intake/output Insertion date: 08/27/18 Insertion time: 12:09 Results - Labs CBC & Chem 7: 08/26/18 20:45 08/26/18 20:45 Laboratory Results - last 24 hr 08/26/18 08/26/18 08/27/18 20:45 21:15 01:10 Sodium 134 L Potassium 3.9 Chloride 99 Carbon Dioxide 23.8 Anion Gap 11 BUN 35 H Creatinine 1.09 H Estimated GFR 51 L Random Glucose 110 H Calcium 8.1 L Total Bilirubin 0.3 AST 42 H ALT 28 Alkaline Phosphatase 111 Total Creatine Kinase 804 H 827 H CK-MB (CK-2) 23.0 H 24.1 H CK-MB (CK-2) % 2.9 2.9 Troponin I Less than 0.02 L Total Protein 6.8 Albumin 3.1 L Serum Alcohol Less than 3 Blood Type O Positive Blood Type Recheck Required Antibody Screen Negative - Imaging Impressions Femur X-Ray 08/27/18 00:00 CONCLUSION: Satisfactory appearance of the left femur status post ORIF of a shaft fracture as described. Assessment and Plan - Assessment and Plan 62 year old female POD 0 s/p ORIF left femur fracture Plan: PWB 50% LLE PT consult for mobilization Pain control VTE prophylaxis: Lovenox Follow up in [address] Eubanks
--- NOTE | 2018-08-27 22:58 | P.PNADD ---
Addendum to Inpatient Note Additional information: Resident Team paged at 22:20 regarding Halicat for hypotension. S: Status post left femur fracture postop day 0 was reported to have asymptomatic hypotension. Nursing reports multiple vitals with noted blood pressures of 80's/ 40's. At the time she was asymptomatic, no shortness of breath or lightheadedness. Her primary team was called, requested stat H&H and 1 L normal saline bolus. Patient was given bolus and placed in Trendelenburg position. Her blood pressures recovered to 110's/ 90s. Blood pressures then dropped back down to 80's/40s and the resident team was paged. Patient denies any shortness of breath, lightheadedness, worsening pain of the left leg. O: Hr 95 BPM, 97% on room air, BP 103/58. General: Patient in no acute distress, reporting moderate pain of the left leg Cardiovascular: Tachycardic, regular. No murmurs Respiratory: Bilateral breath sounds, symmetric chest expansion, no wheezing or rhonchi Extremities: Able to move toes without difficulty bilaterally. Pedal pulses 2+ and symmetric. Examination of left lower extremity shows no significant hematoma, no large ecchymoses, no exquisite tenderness to palpation or evidence of compartment syndrome AP: Patient blood pressures recovered after single bolus Stat H&H ordered, consideration of transfusion if patient's hemoglobin is below 7 Second bolus normal saline 1 L ordered Primary care team to be updated on patient's condition RENATO Sims
[2018-08-27 23:03] LABS: Baso # (Auto) 0.1 th/mm3 (0.0-0.2); Baso % (Auto) 0.5 % (0.0-2.0); Eos % (Auto) 0.1 % (0.0-4.0); Hematocrit 20.3 % (35.0-46.0); Lymph # (Auto) 1.2 th/mm3 (1.0-4.8); Mean Corpuscular HGB Conc 33.7 % (32.0-36.0); Mean Corpuscular Hemoglobin 29.4 pg (27.0-34.0); Mean Corpuscular Volume 87.3 fL (80.0-100.0); Mean Platelet Volume 6.2 fL (7.0-11.0); Mono % (Auto) 7.3 % (0.0-8.0); Neut # (Auto) 12.1 th/mm3 (1.8-7.7); Neut % (Auto) 84.1 % (16.0-70.0); Platelet Count 303 th/mm3 (150-450); Red Blood Count 2.33 mil/mm3 (4.00-5.30); Red Cell Distribution Width 14.2 % (11.6-17.2); White Blood Count 14.4 th/mm3 (4.0-11.0)
[2018-08-27 23:07] LABS: Hemoglobin 6.9 gm/dL (11.6-15.3)
--- NOTE | 2018-08-27 23:19 | P.PNADD ---
Addendum to Inpatient Note Reason for Addendum: Additional Documentation Additional information: Miesha nurse called at 23:10 indicating pt's Hgb was 6.9 and Hct 20.3. Have ordered 1 u PRBCs to be transfused tonight to correct with 1 unit PRBCs held. Will get post-transfusion H/H.
[2018-08-27 23:32] LABS: Platelet Estimate Normal (Normal); Platelet Morphology Normal (Normal)
[2018-08-27] MEDS ORDERED: Sodium Chlor 0.9% Inj 250 ML IV.SIG SCH (23:45)
[2018-08-27] MEDS: Docusate Sodium 100 MG Capsule PO SCH (23:53)
[2018-08-28] MEDS: Acetaminophen 325 MG Tablet PO PRN (05:27)
[2018-08-28 06:36] LABS: Hematocrit 23.4 % (35.0-46.0); Hemoglobin 8.1 gm/dL (11.6-15.3)
[2018-08-28 07:09] LABS: Anion Gap 7 meq/L (5-15); Blood Urea Nitrogen 15 mg/dL (7-18); Calcium 7.2 mg/dL (8.5-10.1); Carbon Dioxide 24.7 meq/L (21.0-32.0); Chloride 106 meq/L (98-107); Glomerular Filtration Rate Greater Than 89 mL/min (>89); Glucose,Random 100 mg/dL (74-106); Potassium 4.1 meq/L (3.5-5.1); Sodium 138 meq/L (136-145)
--- NOTE | 2018-08-28 07:16 | P.PNOP ---
Subjective Interval history: POD 1 s/p IMN left femur doing well. states pain but controlled. has not been out of bed yet Physical Exam Vital signs: Vital Signs 08/27/18 07:30 08/27/18 15:14 08/27/18 15:15 Temperature 98.6 F 97.4 F L Pulse Rate 80 86 92 H Respiratory Rate 17 14 12 Blood Pressure 141/65 H 102/52 L 111/56 L Pulse Oximetry 96 99 97 08/27/18 15:30 08/27/18 15:45 08/27/18 16:18 Temperature 97.5 F L Pulse Rate 91 H 92 H 90 Respiratory Rate 15 20 24 Blood Pressure 102/51 L 103/55 L 100/58 L Pulse Oximetry 93 L 98 97 08/27/18 16:53 08/27/18 17:51 08/27/18 20:36 Temperature 97.8 F 98.5 F Pulse Rate 84 88 Respiratory Rate 19 20 Blood Pressure 87/50 L 90/80 L 84/49 L Pulse Oximetry 96 95 08/27/18 20:47 08/27/18 20:48 08/27/18 23:50 Temperature 98.5 F Pulse Rate 94 H Respiratory Rate 18 Blood Pressure 77/45 L 88/52 L 109/51 L Pulse Oximetry 97 08/28/18 01:05 08/28/18 01:29 08/28/18 03:24 Temperature 98.2 F 98.8 F 98.2 F Pulse Rate 92 H 88 86 Respiratory Rate 16 16 16 Blood Pressure 92/61 L 93/51 L 102/52 L Pulse Oximetry Intake & Output 08/27/18 08/28/18 08/28/18 18:59 06:59 18:59 Intake Total 2840 / 2840 2640 / 2640 Output Total 400 / 400 850 / 850 Balance 2440 / 2440 1790 / 1790 Weight 76.3 kg Intake: IV 1100 / 1100 1999 1/ Normal Saline Inj 1,000 ML 1000 / 1000 @ 75 mls/hr IV[id number] Rx#:[id number] NS Inj 1,000 ML @ Wide Open IV. 1999 SIG BOLUS ONE Rx#:[id number] Ancef 1 GM Premix Inj 1 gm In 50 / 50 50 ml @ 150 mls/hr IV.SIG Q8H [facility] Rx#:[id number] Ancef 2 GM Premix Inj 2 gm In 50 / 50 50 ml @ 100 mls/hr IV.SIG [facility] Rx#:[id number] Oral 240 / 240 240 / 240 Anesthesia Amount 1500 / 1500 Intake (Blood Product) Amt 400 / 400 Rbc As-3 Leukoreduced Unit 400 / 400 [id number] Output: Urine 850 / 850 Estimated Blood Loss 200 / 200 Urine Amount (Catheter) 200 / 200 1 200 / 200 Narrative: LLE: dressings clean and dry. intact. NVI. compartments soft - Urinary Catheter Management 1 Cath placed during this visit: yes Reason for continuing: Hourly intake/output Insertion date: 08/27/18 Insertion time: 12:09 Results - Labs CBC & Chem 7: 08/28/18 06:08 08/28/18 06:08 Laboratory Results - last 24 hr 08/27/18 08/27/18 08/28/18 22:28 22:50 00:15 WBC 14.4 H RBC 2.33 L Hgb 6.9 L* D Hct 20.3 L* MCV 87.3 MCH 29.4 MCHC 33.7 RDW 14.2 Plt Count 303 D MPV 6.2 L Prelim Diff (Auto) Slide review pending Neut % (Auto) 84.1 H Lymph % (Auto) 8.0 L [place] % (Auto) 7.3 Eos % (Auto) 0.1 Baso % (Auto) 0.5 Neut # (Auto) 12.1 H Lymph # (Auto) 1.2 [place] # (Auto) 1.0 H Eos # (Auto) 0.0 Baso # (Auto) 0.1 WBC Differential . Diff Scan Auto diff confirmed Differential Comment . Platelet Estimate Normal Platelet Morphology Normal Sodium Potassium Chloride Carbon Dioxide Anion Gap BUN Creatinine Estimated GFR POC Glucose 135 H Random Glucose Calcium MTS Gel Crossmatch See Detail 08/28/18 08/28/18 06:08 06:08 WBC RBC Hgb 8.1 L Hct 23.4 L MCV MCH MCHC RDW Plt Count MPV Prelim Diff (Auto) Neut % (Auto) Lymph % (Auto) [place] % (Auto) Eos % (Auto) Baso % (Auto) Neut # (Auto) Lymph # (Auto) [place] # (Auto) Eos # (Auto) Baso # (Auto) WBC Differential Diff Scan Differential Comment Platelet Estimate Platelet Morphology Sodium 138 Potassium 4.1 Chloride 106 Carbon Dioxide 24.7 Anion Gap 7 BUN 15 Creatinine 0.66 Estimated GFR Greater than 89 POC Glucose Random Glucose 100 Calcium 7.2 L* D MTS Gel Crossmatch - Imaging Impressions Femur X-Ray 08/27/18 00:00 CONCLUSION: Satisfactory appearance of the left femur status post ORIF of a shaft fracture as described. Assessment and Plan - Assessment and Plan 62 year old female POD 1 s/p ORIF left femur fracture Plan: PWB 50% LLE PT consult for mobilization trapezes bed frame Pain control VTE prophylaxis: Lovenox Follow up in [address] Eubanks PT to eval for home with [facility] vs SNF
[2018-08-28 07:17] LABS: Calcium-Albumin Corrected 8.8 mg/dL (8.5-10.1)
[2018-08-28] MEDS: Sodium Chloride 0.45 % Inj 1,000 ML IV.CONT SCH ×3 (08:28→23:57)
[2018-08-28] MEDS: Docusate Sodium 100 MG Capsule PO SCH ×2 (09:09→21:48)
[2018-08-28] MEDS: Lisinopril 20 MG Tablet PO SCH ×2 (09:09→10:17)
[2018-08-28] MEDS: Gabapentin 300 MG Capsule PO SCH ×3 (09:09→17:24)
[2018-08-28] MEDS: ceFAZolin 1 GM Premix Inj 1 GM/50 ML PIGGYBACK IV.SIG SCH ×3 (09:10→23:56)
[2018-08-28] MEDS: HYDROmorphone PF Inj 1 MG/ML Ampul IV.PUSH PRN ×3 (09:10→19:09)
[2018-08-28] MEDS: Enoxaparin Inj 40 MG/0.4 ML Syringe SQ SCH (09:14)
--- NOTE | 2018-08-28 09:53 | P.PNIM ---
Subjective Interval history: Pt reports that her pain is fairly well controlled She is sitting up in the chair Pt noted to have a cough and she reports that she has had this cough for a few weeks. She state that she was treated as an outpt with two rounds of Abx and steroids. Initially she did have sore throat, nasal congestion and ear ache with the cough but those symptoms resolved and the cough remains. Afebrile. Physical Exam Vital signs: Last Vital Signs Temp 98.2 F 08/28/18 07:41 Pulse 96 H 08/28/18 07:41 Resp 17 08/28/18 07:41 BP 134/66 08/28/18 07:41 Pulse Ox 97 08/28/18 07:41 Narrative: General: NAD, Awake and alert Chest: Congested cough, no wheezing Cardiac: Regular Abd: +BS, soft ND/NT Ext: no edema Results Labs CBC & Chem 7: 08/28/18 06:08 08/28/18 06:08 Imaging Femur X-Ray 08/26/18 20:43 CONCLUSION: 1. Proximal left femur fracture, as above. Pelvis X-Ray 08/26/18 20:43 CONCLUSION: 1. No acute fracture. Femur X-Ray 08/27/18 00:00 CONCLUSION: Satisfactory appearance of the left femur status post ORIF of a shaft fracture as described. Assessment and Plan Assessment (1) Femur fracture, left: Code(s): S72.92XA - Unspecified fracture of left femur, initial encounter for closed fracture Status: Acute (2) Hypertension: Code(s): I10 - Essential (primary) hypertension Status: Acute (3) Leukocytosis: Code(s): D72.829 - Elevated white blood cell count, unspecified Status: Acute Plan Femur fx, left Post-op anemia - s/p nail fixation femur fx on 08/[address] Eubanks - cont prn dilaudid/hydrocodone for pain control - Pt did receive 1 unit PRBCs on 08/28 as her hgb decreased to 6.9 following surgery. Repeat labs with Hgb 8.1 on 08/28 - IS - Constipation precautions. - Ortho recommending, PWB 50% LLE - Pt is wanting to go home at discharge. She reports that her grandson and his girlfriend live with her. - DVT prophylaxis: Lovenox - Pt will need to Follow up with Dr. Eubanks 2 weeks following discharge. HTN - cont home meds as tolerated. Cough - Pt with nonproductive cough x 2-3 weeks. She was treated as an outpt with Abx and steroids per the pt and additional symptoms which included sore throat and sinus congestion improved but her cough has remained. - Check CXR - Mucinex BID - Duonebs Q6H [place] - Pt is a chronic smoker as well. Pt declined nicotine patch. Attending Attestation Patient examined. Assessment and plan formulated with Aura Murillo PA-C. I agree with the above. _ (1) Leukocytosis Qualifiers: Leukocytosis type: (2) Femur fracture, left Qualifiers: Encounter type: Femur location: Fracture alignment: Fracture healing: Fracture morphology: Fracture type: Open fracture type: Salter-Pascal Fracture Type: (3) Hypertension Qualifiers: Hypertension type:
--- NOTE | 2018-08-28 11:22 | XR ---
EXAM DATE: 08/28/2018 11:07 AM EST AGE/SEX: 62 years / Female INDICATIONS: Cough CLINICAL DATA: This is the patient's initial encounter. Patient reports that signs and symptoms have been present for 1 day and indicates a pain score of 0/10. MEDICAL/SURGICAL HISTORY: None. None. COMPARISON: No prior exams available for comparison. FINDINGS: A single AP view of the chest demonstrates the lungs to be symmetrically aerated without evidence of mass, infiltrate or effusion. The cardiomediastinal contours are unremarkable. Osseous structures a re intact. CONCLUSION: No evidence of acute cardiopulmonary process. Electronically signed by: Kraig Reynoso MD Board Certified Radiologist 08/28/2018 11:20 AM EST
[2018-08-28] MEDS: guaiFENesin 600 MG ER Tablet PO SCH ×2 (11:33→21:48)
[2018-08-29 06:15] LABS: Baso # (Auto) 0.1 th/mm3 (0.0-0.2); Baso % (Auto) 0.7 % (0.0-2.0); Eos # (Auto) 0.1 th/mm3 (0.0-0.4); Eos % (Auto) 0.9 % (0.0-4.0); Hemoglobin 7.4 gm/dL (11.6-15.3); Lymph # (Auto) 1.1 th/mm3 (1.0-4.8); Lymph % (Auto) 9.7 % (9.0-44.0); Mean Corpuscular HGB Conc 33.6 % (32.0-36.0); Mean Corpuscular Volume 89.2 fL (80.0-100.0); Mean Platelet Volume 6.3 fL (7.0-11.0); Mono # (Auto) 1.1 th/mm3 (0.0-0.9); Mono % (Auto) 10.1 % (0.0-8.0); Neut # (Auto) 8.5 th/mm3 (1.8-7.7); Neut % (Auto) 78.6 % (16.0-70.0); Platelet Count 294 th/mm3 (150-450); Red Blood Count 2.47 mil/mm3 (4.00-5.30); Red Cell Distribution Width 14.2 % (11.6-17.2); White Blood Count 10.8 th/mm3 (4.0-11.0)
[2018-08-29 06:43] LABS: Anion Gap 7 meq/L (5-15); Blood Urea Nitrogen 12 mg/dL (7-18); Calcium 7.5 mg/dL (8.5-10.1); Carbon Dioxide 25.3 meq/L (21.0-32.0); Chloride 103 meq/L (98-107); Glomerular Filtration Rate Greater Than 89 mL/min (>89); Glucose,Random 105 mg/dL (74-106); Potassium 3.8 meq/L (3.5-5.1); Sodium 135 meq/L (136-145)
--- NOTE | 2018-08-29 06:58 | P.PNOP ---
Subjective Interval history: s/p IMN left femur by Dr Eubanks doing well. reports pain but controlled Physical Exam Vital signs: Vital Signs 08/28/18 07:41 08/28/18 11:23 08/28/18 15:00 Temperature 98.2 F 97.9 F 97.9 F Pulse Rate 96 H 95 H 86 Respiratory Rate 17 17 17 Blood Pressure 134/66 126/62 100/50 L Pulse Oximetry 97 99 97 08/28/18 16:59 08/28/18 19:27 08/28/18 20:45 Temperature 98.2 F Pulse Rate 79 87 88 Respiratory Rate 18 17 16 Blood Pressure 106/53 L Pulse Oximetry 96 08/28/18 23:27 Temperature 98.4 F Pulse Rate 81 Respiratory Rate 17 Blood Pressure 112/58 L Pulse Oximetry 95 Intake & Output 08/28/18 08/28/18 08/29/18 06:59 18:59 06:59 Intake Total 2690 / 2690 2060 / 2060 1050 / 1050 Output Total 850 / 850 1300 / 1300 2900 / 2900 Balance 1840 / 1840 760 / 760 -1850 / -1850 Weight 76.3 kg Intake: IV 2049 / 0 1100 / 1100 1050 / 1050 1/2 Normal Saline Inj 1,000 ML 1000 / 1000 1000 / 1000 @ 75 mls/hr IV.CONT .[id number] [facility] Rx#:[id number] NS Inj 1,000 ML @ Wide Open IV. 1999 / 1999 SIG BOLUS ONE Rx#:[id number] Ancef 1 GM Premix Inj 1 gm In 50 / 50 100 / 100 50 / 50 50 ml @ 150 mls/hr IV.SIG Q8H [facility] Rx#:[id number] Oral 240 / 240 960 / 960 Intake (Blood Product) Amt 400 / 400 Rbc As-3 Leukoreduced Unit 400 / 400 [id number] Output: Urine 850 / 850 1300 / 1300 1300 / 1300 Urine Amount (Catheter) 1600 / 1600 1 1600 / 1600 Narrative: LLE: dressings clean and dry. itnact. NVI - Urinary Catheter Management 1 Cath placed during this visit: yes Reason for continuing: Hourly intake/output Insertion date: 08/27/18 Insertion time: 12:09 Results - Labs CBC & Chem 7: 08/29/18 05:34 08/29/18 05:34 Laboratory Results - last 24 hr 08/28/18 08/29/18 08/29/18 06:08 05:34 05:34 WBC 10.8 RBC 2.47 L Hgb 7.4 L Hct 22.0 L MCV 89.2 MCH 30.0 MCHC 33.6 RDW 14.2 Plt Count 294 MPV 6.3 L Neut % (Auto) 78.6 H Lymph % (Auto) 9.7 [place] % (Auto) 10.1 H Eos % (Auto) 0.9 Baso % (Auto) 0.7 Neut # (Auto) 8.5 H Lymph # (Auto) 1.1 [place] # (Auto) 1.1 H Eos # (Auto) 0.1 Baso # (Auto) 0.1 WBC Differential . Differential Comment Auto diff final Sodium 138 135 L Potassium 4.1 3.8 Chloride 106 103 Carbon Dioxide 24.7 25.3 Anion Gap 7 7 BUN 15 12 Creatinine 0.66 0.55 Estimated GFR Greater than 89 Greater than 89 Random Glucose 100 105 Calcium 7.2 L* D 7.5 L Calcium Adj for Albumin 8.8 Albumin 2.0 L D - Imaging Impressions Chest X-Ray 08/28/18 00:00 CONCLUSION: No evidence of acute cardiopulmonary process. Assessment and Plan - Assessment and Plan 62 year old female POD 2 s/p ORIF left femur fracture Plan: PWB 50% LLE PT consult for mobilization trapeze bed frame Pain control VTE prophylaxis: Lovenox Follow up in [address] Eubanks PT to eval for home with [facility] vs SNF. likely require snf
[2018-08-29] MEDS: Enoxaparin Inj 40 MG/0.4 ML Syringe SQ SCH (08:21)
[2018-08-29] MEDS: ceFAZolin 1 GM Premix Inj 1 GM/50 ML PIGGYBACK IV.SIG SCH ×2 (08:22→17:24)
[2018-08-29] MEDS: Gabapentin 300 MG Capsule PO SCH ×3 (08:22→18:35)
[2018-08-29] MEDS: guaiFENesin 600 MG ER Tablet PO SCH ×2 (08:22→22:03)
[2018-08-29] MEDS: HYDROmorphone PF Inj 1 MG/ML Ampul IV.PUSH PRN (08:22)
[2018-08-29] MEDS: Sodium Chloride 0.45 % Inj 1,000 ML IV.CONT SCH ×2 (08:30→17:40)
[2018-08-29] MEDS: Lisinopril 20 MG Tablet PO SCH (08:30)
[2018-08-29] MEDS: Docusate Sodium 100 MG Capsule PO SCH ×2 (08:30→22:03)
--- NOTE | 2018-08-29 09:29 | P.PNIM ---
Subjective Interval history: pain at surgical hip relieved with narcotics. less coughing today. Physical Exam Vital signs: Last Vital Signs Temp 98.3 F 08/29/18 08:00 Pulse 79 08/29/18 08:07 Resp 16 08/29/18 08:07 BP 168/73 H 08/29/18 08:00 Pulse Ox 100 08/29/18 08:00 Narrative: General: NAD, Awake and alert Chest: clear x b/l Cardiac: Regular Abd: +BS, soft ND/NT Ext: no edema Results Labs CBC & Chem 7: 08/29/18 05:34 08/29/18 05:34 Assessment and Plan Assessment (1) Femur fracture, left: Code(s): S72.92XA - Unspecified fracture of left femur, initial encounter for closed fracture Status: Acute (2) Hypertension: Code(s): I10 - Essential (primary) hypertension Status: Acute (3) Leukocytosis: Code(s): D72.829 - Elevated white blood cell count, unspecified Status: Acute Plan Femur fx, left Post-op anemia - s/p nail fixation femur fx on 08/[address] Eubanks - hydrocodone prn for pain control - Pt did receive 1 unit PRBCs on 08/28 as her hgb decreased to 6.9 following surgery. Repeat labs with Hgb 8.1 on 08/28 - Hg 7.4 (08/29) - will transfuse 2 units PRBCs - repeat CBC in AM - outpt GI w/u - IS - Constipation precautions. - Ortho recommending, PWB 50% LLE - Anticipate d/c to SNF 08/30/18 - DVT prophylaxis: Lovenox - Pt will need to Follow up with Dr. Eubanks 2 weeks following discharge. HTN - cont home meds as tolerated. Cough - Pt with nonproductive cough x 2-3 weeks. She was treated as an outpt with Abx and steroids per the pt and additional symptoms which included sore throat and sinus - improving - CXR (08/28) --> no infiltrates - Mucinex BID - Duonebs Q6H WA - Pt is a chronic smoker as well. Pt declined nicotine patch. _ (1) Leukocytosis Qualifiers: Leukocytosis type: (2) Femur fracture, left Qualifiers: Encounter type: Femur location: Fracture alignment: Fracture healing: Fracture morphology: Fracture type: Open fracture type: Salter-Pascal Fracture Type: (3) Hypertension Qualifiers: Hypertension type:
[2018-08-29] MEDS ORDERED: Sodium Chlor 0.9% Inj 250 ML IV.SIG SCH (10:00)
--- NOTE | 2018-08-29 12:18 | P.OP ---
- Preoperative Diagnosis (1) Femur fracture, left - Postoperative Diagnosis (1) Femur fracture, left Date of procedure: 08/27/18 Procedure: open reduction internal fixation left femur fracture with intramedullary nail Implants: [employer] TFNa Surgeon: Fabby Eubanks MD Guide Setter: Karma Holman Estimated blood loss (mL): 200 Pathology: none sent Operation and Findings: Indications: This is a 62 year old female who was brought to the ED after she fell and sustained a left femoral shaft fracture. Surgical fixation was recommended. Risks were discussed with the patient, including but not limited to risks of bleeding, infection, neurovascular injury, nonunion, malunion, hardware failure, potential need for further surgeries, and complications related to anesthesia. Patient verbalized understanding and wished to proceed with surgery once she was medically optimized. Description of Procedure: The patient was brought to the operating room and general anesthesia was administered. The left foot and ankle was then wrapped in coban and she was transferred to the fracture table. The left leg was placed in the traction boot and the right leg placed in a padded well leg thomas. A well padded perineal post was placed. Once she was appropriately positioned, the fracture was manipulated under fluoroscopic guidance until good alignment of the fracture was obtained. At this point, the left hip and left lower extremity was then prepped and draped in the usual sterile manner. Preoperative antibiotics were given. After appropriate timeout, an incision was made over the lateral aspect of the femur and clamps were placed holding the fracture site reduced. Another incision was made proximal to the greater trochanter and a guidewire was placed in into the tip of the greater trochanter. Appropriate starting point was confirmed on AP and lateral views, and then the soft tissue protector and opening reamer were placed over the guidewire to open the canal. These were removed and a ball tip guidewire was placed. Length was measured and a 380mm length was selected. The canal was reamed sequentially up to 13mm where good chatter was encountered. A [id number] nail was then inserted into the canal and the guidewire removed. X-ray was used to confirm proper seating of the nail. A small incision was then made for the helical blade guide placement. A guidewire was inserted and proper position confirmed with AP and lateral x-ray. This was then measured and drilled for placement of the 90mm helical blade. The nail was locked proximally and traction released. I then made two small incisions distally to insert two distal locking screws using the perfect circles method. The jig was then removed and final fluoroscopic images were taken confirming good fracture reduction and hardware placement. The wounds were then irrigated and closed in a layered fashion with 0-vicryl, 2-0 vicryl and loulou. Sterile dressings were placed over the incision sites. The patient was then transferred back to her hospital bed, awoken from general anesthesia and transferred to the recovery room in good condition. DEONDRE Kinsey was present during the entire procedure to include patient positioning and the procedure. The medical necessity of the Nurse Practitioner Rug Receiving Clerk was indicated in this case due to the complexity of the case itself. During the surgical case, the hemodialysis technician was working the back table while my Manufacturing Test Engineer DEONDRE was directly assisting me.
[2018-08-29] MEDS: Acetaminophen 325 MG Tablet PO PRN (20:01)
[2018-08-30] MEDS: ceFAZolin 1 GM Premix Inj 1 GM/50 ML PIGGYBACK IV.SIG SCH ×3 (03:07→17:13)
[2018-08-30] MEDS ORDERED: Bisacodyl 10 MG Supp RECTAL PRN (04:56)
[2018-08-30 08:50] LABS: Baso # (Auto) 0.1 th/mm3 (0.0-0.2); Baso % (Auto) 0.7 % (0.0-2.0); Eos # (Auto) 0.1 th/mm3 (0.0-0.4); Eos % (Auto) 1.4 % (0.0-4.0); Hematocrit 30.7 % (35.0-46.0); Hemoglobin 10.3 gm/dL (11.6-15.3); Mean Corpuscular HGB Conc 33.6 % (32.0-36.0); Mean Corpuscular Hemoglobin 29.9 pg (27.0-34.0); Mean Platelet Volume 6.4 fL (7.0-11.0); Mono # (Auto) 0.7 th/mm3 (0.0-0.9); Mono % (Auto) 7.8 % (0.0-8.0); Neut # (Auto) 6.8 th/mm3 (1.8-7.7); Neut % (Auto) 79.1 % (16.0-70.0); Platelet Count 332 th/mm3 (150-450); Red Blood Count 3.45 mil/mm3 (4.00-5.30); Red Cell Distribution Width 14.6 % (11.6-17.2); White Blood Count 8.7 th/mm3 (4.0-11.0)
[2018-08-30] MEDS: guaiFENesin 600 MG ER Tablet PO SCH (09:11)
[2018-08-30] MEDS: Gabapentin 300 MG Capsule PO SCH ×3 (09:11→17:12)
[2018-08-30] MEDS: Docusate Sodium 100 MG Capsule PO SCH (09:11)
[2018-08-30] MEDS: Enoxaparin Inj 40 MG/0.4 ML Syringe SQ SCH (09:12)
[2018-08-30] MEDS: Lisinopril 20 MG Tablet PO SCH (09:12)
--- NOTE | 2018-08-30 11:35 | P.DS ---
DS: Providers Date of admission: 08/26/18 22:35 Primary care physician: Richard Velazco MD Consults: 08/26/18 21:15 Consult to Orthopedic Surgery Routine Consulting Provider: Fabby Euabnks Smalltalk Developer:: Fabby Eubanks Reason for Consultation: SEVERELY ANGULATED FEMUR FRACTURE LEFT Notified:: Service Spoke with:: Garrison Date Notified:: 08/26/18 Time Notified:: 21:32 Comments:: Ordering Provider: TRUDY 08/29/18 09:52 HUB Only Consult Order Routine Consulting Provider: Eun Bo Brief History from admission: 62-year-old female who today was going outside to do her laundry she slipped on the cement her left leg got try underneath her body and one is a and was unable to get up on her own. She was unable to contact anyone to help her, paramedics found her approximately 7 PM over 8 hours from the incident patient with severe pain requiring several doses of morphine and eventual Dilaudid x-rays confirm a left large femur fracture orthopedics is aware will be admitted now for surgery in the morning patient has a past medical history of neuropathy chronic knee pain she is on gabapentin and [place] also hypertension on lisinopril 20 mg with HCTZ 12 past medical history includes chronic headaches hypertension . DS: Diagnosis Discharge Diagnosis (1) Femur fracture, left: Status: Acute (2) Hypertension: Status: Acute (3) Leukocytosis: Status: Acute DS: Summary Femur fx, left Post-op anemia - Pt is a 62 y/o female who presented to the ED at [facility] on 08/26/18 after a slip and fall at home and was found to have sustained a proximal left femur fracture. Pt underwent IMNF of the femur fx on 08/[address] Eubanks. Pt did have some post-op anemia and received 1 unit PRBCs on 08/28 as her hgb decreased to 6.9 following surgery. Repeat labs with Hgb 8.1 on 08/28 but Hgb dropped again to 7.4 (08/29). Pt received another 2 units of PRBCs on 08/29. Her Hgb improved to 10.3 on 08/30/18. She denies any noted melena, hematochezia or BRBPR. Pts pain was controlled with oral pain meds prior to discharge. Ortho recommending, PWB 50% LLE. DVT prophylaxis: Lovenox per Ortho. She is to be discharged to SNF. Pt will need to Follow up with Dr. Eubanks 2 weeks following discharge. She should followup outpt with GI as well if her anemia remains persistent. HTN - Cont home meds as BP tolerates Cough - Pt reported a nonproductive cough x 2-3 weeks. She was treated as an outpt with Abx and steroids per the pt and additional symptoms which included sore throat and sinus. She feels overall this has been improving. CXR (08/28) --> no infiltrates. Mucinex BID. SHe was able to be weaned off supplemental O2 and was saturating well on RA. Pt is a chronic smoker as well. Pt declined nicotine patch. Discussed tobacco cessation and the assistance programs that [facility] offers. Time Spent with Patient Total time spent providing and/or coordinating discharge services: Results Labs on day of discharge: Labs from last 24 hours 08/30/18 08/29/18 08/28/18 07:35 09:06 00:15 WBC 8.7 RBC 3.45 L Hgb 10.3 L D Hct 30.7 L MCV 89.0 MCH 29.9 MCHC 33.6 RDW 14.6 Plt Count 332 MPV 6.4 L Neut % (Auto) 79.1 H Lymph % (Auto) 11.0 [place] % (Auto) 7.8 Eos % (Auto) 1.4 Baso % (Auto) 0.7 Neut # (Auto) 6.8 Lymph # (Auto) 1.0 [place] # (Auto) 0.7 Eos # (Auto) 0.1 Baso # (Auto) 0.1 WBC Differential . Differential Comment Auto diff final MTS Gel Crossmatch See Detail See Detail Impressions ITS Impressions Pelvis X-Ray 08/26/18 20:43 CONCLUSION: 1. No acute fracture. Femur X-Ray 08/27/18 00:00 CONCLUSION: Satisfactory appearance of the left femur status post ORIF of a shaft fracture as described. Chest X-Ray 08/28/18 00:00 CONCLUSION: No evidence of acute cardiopulmonary process. Discharge Plan Discharge Disposition Patient Disposition: 03 Discharge to SNF Discharge Condition Condition: Stable Discharge Order Discharge Orders: Discharge Order (Routine); Ordered 08/30/18 Ordered By: Aura Murillo Discharge Details Anticipated Discharge Date: 08/30/18 Discharge Comment: Followup with Dr. Eubanks in 2 weeks Followup with PCP, Dr. Richard Velazco, 1 week after discharge from rehab Physicians Team ED Provider: David Valerio Primary Care Provider: Richard Velazco Attending Provider: Nathan Chowdary Other Providers: Fabby Eubanks ; [facility],[place] Rxs /Orders / Referrals /Forms Prescriptions: New oxycodone-acetaminophen [Percocet] 10-325 mg tablet 1 tab PO Q4H PRN (Reason: pain) Qty: 60 RF: 0 guaifenesin [Mucinex] 600 mg Tablet Extended Release 12hr 600 mg PO BID Qty: 10 RF: 0 enoxaparin [Lovenox] 40 mg/0.4 mL Syringe 40 mg subcut DAILY Qty: 21 RF: 0 Continue gabapentin 600 mg Tablet 600 mg PO TID RF: 0 lisinopril-hydrochlorothiazide 20-12.5 mg Tablet 1 tab PO DAILY RF: 0 No Action hydrocodone-acetaminophen [[place]] 7.5-325 mg Tablet 1 tab PO DAILY RF: 0 Referrals: Richard Velazco MD [Primary Care Provider] - See Instructions (F/U with Dr. Richard Velazco, one week after discharge from SNF) Fabby Eubanks MD [Physician] - See Instructions (Followup in 2 weeks, call for that appt. ) Discharge Instructions Patient Printed Instructions: ORIF (DC) Status ED Status: Left Department
[2018-08-30 18:28] VITALS: BP 144/81; PULSE 77; RESP 16; TEMP 98.6; O2SAT 98
== END 2018-08-30 19:31 | DRG 482 ==
LOC: NEPE 20:33 → NEDA 22:35 → N06 08-27 02:12
PROVIDERS: ADMIT Hospitalist; ATTEND Hospitalist
PROC: ORIFFEM (2018-08-27 11:28)
DX: R05 Cough; G62.9 Polyneuropathy, unspecified; F17.210 Nicotine dependence, cigarettes, uncomplicated; Z79.899 Other long term (current) drug therapy; G89.29 Other chronic pain; Y93.9 Activity, unspecified; Y92.009 Unspecified place in unspecified non-institutional (private) residence as the place of occurrence of the external cause; M19.90 Unspecified osteoarthritis, unspecified site; D72.829 Elevated white blood cell count, unspecified; D64.9 Anemia, unspecified; I10 Essential (primary) hypertension; M25.569 Pain in unspecified knee; W01.0XXA Fall on same level from slipping, tripping and stumbling without subsequent striking against object, initial encounter; R51 Headache; S72.302A Unspecified fracture of shaft of left femur, initial encounter for closed fracture
CPT/HCPCS: 36430; 71010; 71045; 72170; 73551; 73552; 76000; 80048; 80053; 80307; 82040; 82550; 82552; 82948; 82962; 84484; 85014; 85018; 85025; 85610; 86850; 86900; 86901; 86923; 90761; 90774; 90784; 93005; 94640; 94665; 96361; 96374; 97110; 97162; 97530; 99285; C1713; C8952; J0131; J0690; J1170; J1650; J1940; J2270; J2405; J3010; J7030; J7040; J7050; L1830; P9016